=== PATIENT | male | born 1955 | race Caucasian/White ===

== ENCOUNTER 2021-08-06 09:03 | Day surgery (SDC) | payer MEDICARE, SELFPAY ==
--- NOTE | 2021-08-02 09:50 | HO.ANESPROP2 ---
Documented by User: Trista Carrillo NP 08/09/21 14:23 HPI - Anesthesia Eval Consult details Narrative: 65yo M for Colonoscopy [facility] Past Medical History Medical History (Updated 08/01/21 @ 09:07 by Lydia Banks RN) Allergic rhinitis BPH (benign prostatic hyperplasia) CAD (coronary artery disease) Diverticulosis GERD (gastroesophageal reflux disease) HTN (hypertension) Hyperlipidemia Myocardial infarction On beta breann at home Surgical History Surgical History (Updated 08/01/21 @ 09:07 by Lydia Banks RN) History of back surgery History of heart artery stent History of total hip replacement Hx of colonoscopy Social History Social History Patient Tobacco Use Status: Former Tobacco user Use of substances other than those prescribed or required for medical reasons: Yes Substance Use Frequency: Weekly Are you DNR?: No Advance Directives: No Advance Directives Information Provided: Yes Meds Allergies Allergy/AdvReac Type Severity Reaction Status Date / Time No Known Allergies Allergy Verified 07/31/21 09:33 Home Medications Medication Instructions Recorded Confirmed Last Taken Type aspirin 81 mg tablet,delayed 81 mg PO DAILY 07/31/21 07/31/21 08/01/21 History release atorvastatin 40 mg tablet 40 mg PO DAILY 07/31/21 07/31/21 08/06/21 History diclofenac sodium 75 mg 75 mg PO BID 07/31/21 07/31/21 07/30/21 History tablet,delayed release lisinopril 20 mg tablet 20 mg PO DAILY 07/31/21 07/31/21 08/06/21 History metoprolol succinate 100 mg 100 mg PO DAILY 07/31/21 07/31/21 08/06/21 History tablet,extended release 24 hr (Toprol XL) Exam Exam Date and Time: August 02, 2021 0950 Assessment and Plan Assessment Anesthesia Assessment: Chart Reviewed Documented by User: Cristhian Mas MD 08/13/21 14:46 [facility] Past Medical History Medical History (Updated 08/01/21 @ 09:07 by Lydia Banks RN) Allergic rhinitis BPH (benign prostatic hyperplasia) CAD (coronary artery disease) Diverticulosis GERD (gastroesophageal reflux disease) HTN (hypertension) Hyperlipidemia Myocardial infarction On beta breann at home Family History Family history of problems with anesthesia: No Surgical History Surgical History (Updated 08/01/21 @ 09:07 by Lydia Banks RN) History of back surgery History of heart artery stent History of total hip replacement Hx of colonoscopy History of Problems with Anesthesia: No Social History Social History Patient Tobacco Use Status: Former Tobacco user Use of substances other than those prescribed or required for medical reasons: Yes Substance Use Frequency: Weekly Are you DNR?: No Advance Directives: No Advance Directives Information Provided: Yes Meds Allergies Allergy/AdvReac Type Severity Reaction Status Date / Time No Known Allergies Allergy Verified 07/31/21 09:33 Home Medications Medication Instructions Recorded Confirmed Last Taken Type aspirin 81 mg tablet,delayed 81 mg PO DAILY 07/31/21 07/31/21 08/01/21 History release atorvastatin 40 mg tablet 40 mg PO DAILY 07/31/21 07/31/21 08/06/21 History diclofenac sodium 75 mg 75 mg PO BID 07/31/21 07/31/21 07/30/21 History tablet,delayed release lisinopril 20 mg tablet 20 mg PO DAILY 07/31/21 07/31/21 08/06/21 History metoprolol succinate 100 mg 100 mg PO DAILY 07/31/21 07/31/21 08/06/21 History tablet,extended release 24 hr (Toprol XL) Assessment and Plan Assessment Anesthesia Assessment: Anesthesia Plan Discussed Final Anesthetic Review Family History of Problems with Anesthesia: No History of Problems with Anesthesia: No NPO: Yes ASA Class: II Final Preanesthetic Review: No Changes in Pt Med Stat, Meds/Allgs Chart Reviewed, Consent Obtained/Reviewed and Anes Risks/Benef Reviewed Patient Risk: Intermediate Procedure Risk: Low Anesthetic Plan Anesthetic Plan: MAC: Disposition: Standard PACU
[2021-08-02 14:20] VITALS: BMI 26.4
[2021-08-06 09:29] VITALS: BP 136/80; PULSE 71; RESP 16; TEMP 36.3; O2SAT 95
[2021-08-06] MEDS: Lactated Ringers 1,000 ML 100 ML IVCONT (09:58)
--- NOTE | 2021-08-06 10:22 | MHC.SHP ---
Pre-Procedural Eval Section A Date of Service: 08/06/21 The patient is an INPATIENT: No Changes since office visit: No Cold of Flu in the past 2 weeks, No New Medical Problems, No Changes in Medication and No Patient answered all questions The History & Physical has been completed within 30 days and I have reviewed it.: Yes Section B Chief Complaint: screening Allergies: Allergies Allergy/AdvReac Type Severity Reaction Status Date / Time No Known Allergies Allergy Verified 07/31/21 09:33 Plan I have reviewed the history and physical and performed a pertinent physical examination on my patient. No changes have occurred unless specified.
[2021-08-06 11:12] VITALS: BP 118/82; PULSE 69; RESP 14; TEMP 36.2; O2SAT 94
--- NOTE | 2021-08-06 11:15 | P.BOP_ITS ---
Brief Operative Note Date of Service: 08/06/21 Pre-op diagnosis: screening Post-op diagnosis: same (incomplete colonoscopy) Procedure: colonoscopy Surgeon: Kali Storey Anesthesia: MAC Was an Securities Settlement Processor used for this Procedure?: No Estimated blood loss (mL): 0 Pathology: none sent Condition: stable Disposition: PACU
[2021-08-06 11:27] VITALS: BP 134/89; PULSE 67; RESP 16; TEMP 36.2; O2SAT 99
--- NOTE | 2021-08-06 11:31 | OP_ITS ---
SURGEON: Kali Storey MD INDICATIONS: Colon cancer screening. PREOPERATIVE DIAGNOSIS: POSTOPERATIVE DIAGNOSIS: PROCEDURE PERFORMED: Colonoscopy to hepatic flexure. ESTIMATED BLOOD LOSS: COMPLICATIONS: ANESTHESIA: ASSISTANTS: SPECIMENS: MEDICATIONS: Monitored anesthesia care. DESCRIPTION OF PROCEDURE: History and physical performed. The risks and benefits of the procedure were explained to the patient. Informed consent was obtained. The patient was placed in the left lateral decubitus position. A digital rectal exam was performed and was found to be normal. The Olympus pediatric video colonoscope was introduced into the rectum. The scope was advanced to the hepatic flexure, where a poor prep limited further advancement. Examination was performed and the scope was removed. He tolerated the procedure well and was taken to recovery area in stable condition. FINDINGS: The terminal ileum was not examined. The visualized colonic mucosa was normal. The scope could only be advanced to the hepatic flexure due to limitations in the prep and looping in the sigmoid. The visualized colonic mucosa was normal, however, the exam was extremely limited by the presence of a large amount of formed and liquid stool, which was suctioned as best possible, but unfortunately, this was a nondiagnostic exam. Diverticulosis of the sigmoid was noted. It is estimated that 75% of the colon was examined. Retroflexed examination was normal. IMPRESSION: 1. Incomplete colonoscopy. 2. Limited, but normal examination for the visualized colonic mucosa. RECOMMENDATION: Repeat colonoscopy with a 2-day prep in 6 to 12 months. MD PIERCE Baron/ARABELLAL / [id number]
== END 2021-08-06 12:15 | disposition home or self-care (01) ==
PROVIDERS: PCP Family Medicine; Visit Provider Internal Medicine Gastroenterology
PROC: 0DJD8ZZ Inspection of Lower Intestinal Tract, Via Natural or Artificial Opening Endoscopic (ICD-10-PCS; CPT 45378; principal; 2021-08-06 10:10)
DX: Z12.11 Encounter for screening for malignant neoplasm of colon (principal); Z86.010 Personal history of colon polyps; K57.30 Diverticulosis of large intestine without perforation or abscess without bleeding; K59.00 Constipation, unspecified; K21.9 Gastro-esophageal reflux disease without esophagitis; I25.10 Atherosclerotic heart disease of native coronary artery without angina pectoris; Z98.61 Coronary angioplasty status; I10 Essential (primary) hypertension; N40.0 Benign prostatic hyperplasia without lower urinary tract symptoms; J31.0 Chronic rhinitis; Z79.82 Long term (current) use of aspirin; Z79.899 Other long term (current) drug therapy; Z87.891 Personal history of nicotine dependence
CPT/HCPCS: 45378; J2370

== ENCOUNTER 2021-12-27 09:52 | Day surgery (SDC) | payer MEDICARE, SELFPAY ==
[2021-12-27 10:24] VITALS: BP 143/98; PULSE 78; RESP 16; TEMP 36.6; O2SAT 98; BMI 24.3
--- NOTE | 2021-12-27 10:45 | HO.ANESPROP2 ---
[facility] Past Medical History Medical History Allergic rhinitis BPH (benign prostatic hyperplasia) CAD (coronary artery disease) Diverticulosis GERD (gastroesophageal reflux disease) HTN (hypertension) Hyperlipidemia Myocardial infarction On beta breann at home Functional capacity: independent ambulation Family History Family history of problems with anesthesia: No Surgical History Surgical History History of back surgery History of heart artery stent History of total hip replacement Hx of colonoscopy History of Problems with Anesthesia: No Social History Social History Patient Tobacco Use Status: Former Tobacco user Quit Date: 1999 Use of substances other than those prescribed or required for medical reasons: Yes Substance Use Frequency: Occasionally Are you DNR?: No Advance Directives: No Advance Directives Information Provided: Yes Meds Allergies Allergy/AdvReac Type Severity Reaction Status Date / Time No Known Allergies Allergy Verified 10/31/21 14:42 Home Medications Medication Instructions Recorded Confirmed Last Taken Type aspirin 81 mg tablet,delayed 81 mg PO DAILY 07/31/21 10/31/21 12/23/21 History release atorvastatin 40 mg tablet 40 mg PO DAILY 07/31/21 10/31/21 08/06/21 History diclofenac sodium 75 mg 75 mg PO BID 07/31/21 10/31/21 07/30/21 History tablet,delayed release lisinopril 20 mg tablet 20 mg PO DAILY 07/31/21 10/31/21 08/06/21 History metoprolol succinate 100 mg 100 mg PO DAILY 07/31/21 10/31/21 12/27/21 08:00 History tablet,extended release 24 hr (Toprol XL) Exam Exam Date and Time: December 27, 2021 1045 Height,Weight and Vital Signs: Height 5 ft 8 in Weight 72.575 kg Last Vital Signs Temp 97.8 F 12/27/21 10:24 Pulse 78 12/27/21 10:24 Resp 16 12/27/21 10:24 BP 143/98 H 12/27/21 10:24 Pulse Ox 98 12/27/21 10:24 Airway Mallampati Class: II TM Dist: >3cm Neck ROM: Full Heart: RRr Lungs: CTA Assessment and Plan Final Anesthetic Review Family History of Problems with Anesthesia: No History of Problems with Anesthesia: No ASA Class: II Final Preanesthetic Review: No Changes in Pt Med Stat, Meds/Allgs Chart Reviewed, Consent Obtained/Reviewed and Anes Risks/Benef Reviewed Patient Risk: Low Procedure Risk: Low Anesthetic Plan Anesthetic Plan: MAC: Disposition: Standard PACU
[2021-12-27] MEDS: Lactated Ringers 1,000 ML 100 ML IVCONT (10:53)
--- NOTE | 2021-12-27 11:17 | MHC.SHP ---
Pre-Procedural Eval Section A Date of Service: 12/27/21 Section B Chief Complaint: screening Details of Present Illness: see h&p no changes Relevant Family History (Specify if Yes): No Relevant Social History: None Present Medications: see Short Stay Collaborative assessment Medical History: No relevant PMH History of Previous Operations: Relevant previous surgery/procedure and date(s) (cervical disc surgery 11/16) Allergies: Allergies Allergy/AdvReac Type Severity Reaction Status Date / Time No Known Allergies Allergy Verified 10/31/21 14:42 Review of Systems Sugical H&P ROS: Negative: Constitution, Cardiovascular, Respiratory, Neurological, Psychiatric, Hem-Onc, Allergic/Immunologic, Gastrointestinal, Genitourinary, Musculoskeletal, Integumentary, Endocrine and Eyes/Ears/Nose/Throat Exam Surgical H&P Exam: Normal: HEENT, Normal: Heart, Normal: Lungs, Normal: Extremities, Normal: Abdomen, Normal: Skin and Normal: Neurological Plan I have reviewed the history and physical and performed a pertinent physical examination on my patient. No changes have occurred unless specified.
[2021-12-27 12:12] VITALS: BP 133/89; PULSE 71; RESP 18; TEMP 37.6; O2SAT 99
--- NOTE | 2021-12-27 12:13 | P.BOP_ITS ---
Brief Operative Note Date of Service: 12/27/21 Pre-op diagnosis: screening Post-op diagnosis: same (diverticulitis) Procedure: colonoscopy Surgeon: Kali Storey Anesthesia: MAC Was an Compensation Vice President used for this Procedure?: No Estimated blood loss (mL): 0 Condition: stable Disposition: PACU
[2021-12-27 12:27] VITALS: BP 141/93; PULSE 76; RESP 18; TEMP 37.6; O2SAT 98
--- NOTE | 2021-12-27 13:14 | OP_ITS ---
cc: Jeff Young MD~ SURGEON: Kali Storey MD INDICATIONS: Colon cancer screening. PREOPERATIVE DIAGNOSIS: POSTOPERATIVE DIAGNOSIS: PROCEDURE PERFORMED: Colonoscopy to the cecum. ESTIMATED BLOOD LOSS: COMPLICATIONS: ANESTHESIA: ASSISTANTS: SPECIMENS: MEDICATIONS: Monitored anesthesia care. DESCRIPTION OF PROCEDURE: History and physical were performed. The risks and benefits of the procedure were explained to the patient. Informed consent was obtained. The patient was placed in the left lateral decubitus position. A digital rectal exam was performed and was found to be normal. The Olympus pediatric video colonoscope was introduced into the rectum and advanced to the cecum without difficulty. The cecum was identified by transillumination, palpation, and identification of ileocecal valve. Examination was performed. The scope was removed. He tolerated the procedure well and was taken to recovery area in stable condition. FINDINGS: The terminal ileum was not examined. The visualized colonic mucosa was normal without evidence of masses, ulcers, or polyps. There was sigmoid diverticulosis with luminal narrowing and muscular hypertrophy. There were some liquid and formed stool left, which limited the sensitivity examination for detection of small polyps. This was washed and suctioned. Retroflexed examination showed moderate-sized internal hemorrhoids. IMPRESSION: Diverticulosis. RECOMMENDATION: 1. Follow up as needed. 2. Repeat colonoscopy is recommended in 10 years for average risk individuals. MD PIERCE Baron/ARABELLAL / [id number] MTDD
== END 2021-12-27 13:10 | disposition home or self-care (01) ==
PROVIDERS: PCP Family Medicine; Visit Provider Internal Medicine Gastroenterology
PROC: 0DJD8ZZ Inspection of Lower Intestinal Tract, Via Natural or Artificial Opening Endoscopic (ICD-10-PCS; CPT 45378; principal; 2021-12-27 11:20)
DX: Z12.11 Encounter for screening for malignant neoplasm of colon (principal); Z86.010 Personal history of colon polyps; K57.30 Diverticulosis of large intestine without perforation or abscess without bleeding; K64.8 Other hemorrhoids; K59.00 Constipation, unspecified; K21.9 Gastro-esophageal reflux disease without esophagitis; E78.5 Hyperlipidemia, unspecified; I25.10 Atherosclerotic heart disease of native coronary artery without angina pectoris; Z98.61 Coronary angioplasty status; I10 Essential (primary) hypertension; I25.2 Old myocardial infarction; N40.0 Benign prostatic hyperplasia without lower urinary tract symptoms; J30.9 Allergic rhinitis, unspecified; Z79.82 Long term (current) use of aspirin; Z79.899 Other long term (current) drug therapy; Z87.891 Personal history of nicotine dependence
CPT/HCPCS: G0105

== ENCOUNTER 2022-02-26 11:59 | Day surgery (SDC) | payer MEDICARE, SELFPAY ==
--- NOTE | 2022-02-25 10:47 | HO.ANESPROP2 ---
Documented by User: Trista Carrillo NP 02/25/22 10:55 HPI - Anesthesia Eval Consult details Narrative: 66yo M for Colonoscopy s/p colonoscopy 12/2021 with MAC (repeat d/t ? mass on abdominal imaging for AAA screening) [facility] Past Medical History Medical History Allergic rhinitis BPH (benign prostatic hyperplasia) CAD (coronary artery disease) Diverticulosis GERD (gastroesophageal reflux disease) HTN (hypertension) Hyperlipidemia Myocardial infarction On beta breann at home Family History Family history of problems with anesthesia: No Surgical History Surgical History History of back surgery History of heart artery stent History of total hip replacement Hx of colonoscopy History of Problems with Anesthesia: No Social History Social History Patient Tobacco Use Status: Former Tobacco user Quit Date: 22 yrs ago Use of substances other than those prescribed or required for medical reasons: Yes Substance Use Frequency: Occasionally Are you DNR?: No Advance Directives: No Advance Directives Information Provided: Yes Meds Allergies Allergy/AdvReac Type Severity Reaction Status Date / Time No Known Allergies Allergy Verified 10/31/21 14:42 Home Medications Medication Instructions Recorded Confirmed Last Taken Type aspirin 81 mg tablet,delayed 81 mg PO DAILY 07/31/21 10/31/21 02/19/22 History release atorvastatin 40 mg tablet 40 mg PO DAILY 07/31/21 10/31/21 08/06/21 History diclofenac sodium 75 mg 75 mg PO BID 07/31/21 10/31/21 07/30/21 History tablet,delayed release lisinopril 20 mg tablet 20 mg PO DAILY 07/31/21 10/31/21 08/06/21 History metoprolol succinate 100 mg 100 mg PO DAILY 07/31/21 10/31/21 02/26/22 11:00 History tablet,extended release 24 hr (Toprol XL) Exam Exam Date and Time: February 25, 2022 1047 Assessment and Plan Assessment Anesthesia Assessment: Chart Reviewed Final Anesthetic Review Family History of Problems with Anesthesia: No History of Problems with Anesthesia: No Documented by User: Tylor Wells MD 02/26/22 15:47 HPI - Anesthesia Eval Consult details Narrative: 66yo M for Colonoscopy CAD s/p stent 20 years s/p colonoscopy 12/2021 with MAC (repeat d/t ? mass on abdominal imaging for AAA screening) As per patient had a surveillance CT for the AAA month ago which showed it was stable . [facility] Past Medical History Medical History Allergic rhinitis BPH (benign prostatic hyperplasia) CAD (coronary artery disease) Diverticulosis GERD (gastroesophageal reflux disease) HTN (hypertension) Hyperlipidemia Myocardial infarction On beta breann at home Surgical History Surgical History History of back surgery History of heart artery stent History of total hip replacement Hx of colonoscopy Social History Social History Patient Tobacco Use Status: Former Tobacco user Quit Date: 22 yrs ago Use of substances other than those prescribed or required for medical reasons: Yes Substance Use Frequency: Occasionally Are you DNR?: No Advance Directives: No Advance Directives Information Provided: Yes Meds Allergies Allergy/AdvReac Type Severity Reaction Status Date / Time No Known Allergies Allergy Verified 10/31/21 14:42 Home Medications Medication Instructions Recorded Confirmed Last Taken Type aspirin 81 mg tablet,delayed 81 mg PO DAILY 07/31/21 10/31/21 02/19/22 History release atorvastatin 40 mg tablet 40 mg PO DAILY 07/31/21 10/31/21 08/06/21 History diclofenac sodium 75 mg 75 mg PO BID 07/31/21 10/31/21 07/30/21 History tablet,delayed release lisinopril 20 mg tablet 20 mg PO DAILY 07/31/21 10/31/21 08/06/21 History metoprolol succinate 100 mg 100 mg PO DAILY 07/31/21 10/31/21 02/26/22 11:00 History tablet,extended release 24 hr (Toprol XL) Exam Airway Mallampati Class: II TM Dist: >3cm Neck ROM: Full Loose/Missing/Broken Teeth: Yes (Poor dentition, chipped and missing ) Heart: S1, S2 Lungs: b/l breath sounds Assessment and Plan Assessment Anesthesia Assessment: Anesthesia Plan Discussed Final Anesthetic Review NPO: Yes ASA Class: III Final Preanesthetic Review: No Changes in Pt Med Stat, Meds/Allgs Chart Reviewed, Consent Obtained/Reviewed and Anes Risks/Benef Reviewed Patient Risk: High Procedure Risk: Intermediate Anesthetic Plan Anesthetic Plan: MAC: Disposition: Standard PACU
[2022-02-26 12:50] VITALS: BMI 25.0
[2022-02-26 12:52] VITALS: BP 116/88; PULSE 84; RESP 16; TEMP 36.6; O2SAT 97
[2022-02-26] MEDS: Lactated Ringers 1,000 ML 100 ML IVCONT (12:57)
--- NOTE | 2022-02-26 13:07 | MHC.SHP ---
Pre-Procedural Eval Section A Date of Service: 02/26/22 Section B Chief Complaint: abnormal findings Details of Present Illness: see h and p and addendum, no changes Relevant Family History (Specify if Yes): No Relevant Social History: None Present Medications: see Short Stay Collaborative assessment Medical History: No relevant PMH History of Previous Operations: No relevant previous surgery Allergies: Allergies Allergy/AdvReac Type Severity Reaction Status Date / Time No Known Allergies Allergy Verified 10/31/21 14:42 Review of Systems Sugical H&P ROS: Negative: Constitution, Cardiovascular, Respiratory, Neurological, Psychiatric, Hem-Onc, Allergic/Immunologic, Gastrointestinal, Genitourinary, Musculoskeletal, Integumentary, Endocrine and Eyes/Ears/Nose/Throat Exam Surgical H&P Exam: Normal: HEENT, Normal: Heart, Normal: Lungs, Normal: Extremities, Normal: Abdomen, Normal: Skin and Normal: Neurological Plan Diagnosis/Plan: Unchanged I have reviewed the history and physical and performed a pertinent physical examination on my patient. No changes have occurred unless specified.
--- NOTE | 2022-02-26 14:34 | P.BOP_ITS ---
Brief Operative Note Date of Service: 02/26/22 Pre-op diagnosis: abnl ct of colon Post-op diagnosis: same (colon polyps) Procedure: colonoscopy Surgeon: Kali Storey Anesthesia: MAC Was an Police Shift Commander used for this Procedure?: No Estimated blood loss (mL): 5 Pathology: other (see req) Condition: stable Disposition: PACU
[2022-02-26 14:36] VITALS: BP 119/87; PULSE 78; RESP 16; TEMP 36.3; O2SAT 94
--- NOTE | 2022-02-26 14:46 | PC.NURSE ---
MD DUMONT BY BEDSIDE SPEAKING TO PATIENT
[2022-02-26 14:51] VITALS: BP 127/81; PULSE 83; RESP 16; TEMP 37; O2SAT 96
--- NOTE | 2022-02-27 02:27 | OP_ITS ---
SURGEON: Kali Storey MD INDICATIONS: Abnormal CT scan of the colon. PREOPERATIVE DIAGNOSIS: POSTOPERATIVE DIAGNOSIS: PROCEDURE PERFORMED: ESTIMATED BLOOD LOSS: COMPLICATIONS: ANESTHESIA: ASSISTANTS: SPECIMENS: PROCEDURE: Colonoscopy to the cecum with biopsy and snare polypectomy. MEDICATIONS: Monitored anesthesia care. DESCRIPTION OF PROCEDURE: History and physical performed. The risks and benefits of the procedure were explained to the patient. Informed consent was obtained. The patient was placed in the left lateral decubitus position. A digital rectal exam was performed and was found to be normal. The Olympus pediatric video colonoscope was introduced into the rectum and advanced to the cecum. The cecum was identified by transillumination, palpation, and identification of ileocecal valve. Examination was performed. The scope was removed. He tolerated the procedure well and was taken to recovery area in stable condition. FINDINGS: The cecum was identified correctly and definitively with transillumination, palpation, and identification of ileocecal valve as noted above and a forceps was able to intubate the terminal ileum for a single biopsy to confirm small bowel placement. The scope could not be advanced into the terminal ileum due to the patient's anatomy. There was a less than 5 mm polyp in the cecum, which was removed with biopsy forceps. The right colon was carefully examined. There was noted to be waves of peristalsis, which at times appeared to simulate an apple-core lesion. No apple-core lesion was identified. Multiple pull throughs of the right colon were obtained with no lesion being identified at the mucosal level other than the polyp in the cecum. Random biopsies were obtained from the right colon. There was a less than 5 mm polyp in the hepatic flexure, which was removed with the biopsy forceps. At 60 cm, were 2 polyps measuring under 10 mm, one was removed with a cold snare and the 2nd was recovered with the biopsy forceps. There was a large amount of liquid stool, which was suctioned carefully and tediously to ensure nothing was missed. No lesions were identified suggestive of the findings on the CAT scan and it is my suspicion that this is a way of peristalsis that happened to appear like an apple-core lesion as noted above. There was moderate sigmoid diverticulosis. Retroflexed examination showed internal hemorrhoids. IMPRESSION: 1. Colon polyps. 2. No mass lesion identified intraluminally as above. 3. Diverticulosis. RECOMMENDATIONS: Follow up the biopsy results.. MD PIERCE Baron/SILKE / [id number]
== END 2022-02-26 15:46 | disposition home or self-care (01) ==
PROVIDERS: PCP Family Medicine; Visit Provider Internal Medicine Gastroenterology
PROC: 0DJD8ZZ Inspection of Lower Intestinal Tract, Via Natural or Artificial Opening Endoscopic (ICD-10-PCS; CPT 45378; principal; 2022-02-26 13:00)
DX: R93.3 Abnormal findings on diagnostic imaging of other parts of digestive tract (principal); Z86.010 Personal history of colon polyps; D12.3 Benign neoplasm of transverse colon; D12.4 Benign neoplasm of descending colon; K63.5 Polyp of colon; R19.2 Visible peristalsis; K57.30 Diverticulosis of large intestine without perforation or abscess without bleeding; K64.8 Other hemorrhoids; K59.00 Constipation, unspecified; K21.9 Gastro-esophageal reflux disease without esophagitis; I25.10 Atherosclerotic heart disease of native coronary artery without angina pectoris; Z98.61 Coronary angioplasty status; I10 Essential (primary) hypertension; I25.2 Old myocardial infarction; E78.5 Hyperlipidemia, unspecified; J30.9 Allergic rhinitis, unspecified; N40.0 Benign prostatic hyperplasia without lower urinary tract symptoms; Z79.82 Long term (current) use of aspirin; Z79.899 Other long term (current) drug therapy; Z87.891 Personal history of nicotine dependence
CPT/HCPCS: 45385; 45380; 88305